=== PATIENT | female | born 1970 | race Caucasian/White ===

== ENCOUNTER 2016-08-31 09:27 | Emergency (ER) | payer MEDICAID ==
[~2016-08-31] VITALS: Ht 170.2 cm; Wt 54.1 kg
[2016-08-31] MEDS ORDERED: SUPPLIMENTS PO (09:42)
[2016-08-31 10:32] LABS: HEMATOCRIT 22.5 % (36-46); HEMOGLOBIN 7.8 g/dL (12.0-16.0); MEAN CORPUSCULAR HEMOGLOBIN 29.7 pg (26.0-34.0); MEAN CORPUSCULAR HGB CONC 34.8 G/dL (31.0-37.0); MEAN CORPUSCULAR VOLUME 85 fL (80-100); PLATELET COUNT (AUTO) 302 K/uL (150-450); RED BLOOD CELL COUNT(AUTO) 2.63 MIL/uL (4.00-5.20); RED CELL DISTRIBUTION WIDTH 16.1 % (11.5-14.5); WHITE BLOOD COUNT (AUTO) 6.9 K/uL (4.5-11.0)
[2016-08-31 10:36] LABS: ANION GAP 10 mmol/L (8-16); CALCIUM, TOTAL 10.7 mg/dL (8.8-10.5); CARBON DIOXIDE 24 mmol/L (22-29); CHLORIDE 103 mmol/L (98-107); CREATININE 0.51 mg/dL (0.60-1.30); GLOMERULAR FILTR. RATE CALC > 60 mL/min (>60); POTASSIUM 3.6 mmol/L (3.5-5.1); SODIUM SERUM 137 mmol/L (136-145); UREA NITROGEN, BLOOD 8 mg/dL (7-18)
[2016-08-31 10:37] LABS: INR 1.2 (0.9-1.1); PROTHROMBIN TIME 12.2 SEC (9.4-11.6)
[2016-08-31 10:42] LABS: ALANINE AMINOTRANSFERASE 179 U/L (12-78); ALBUMIN 2.6 g/dL (3.4-5.0); ASPARTATE AMINOTRANSFERASE 626 U/L (15-37); BILIRUBIN,TOTAL 5.1 mg/dL (0.1-1.0); TOTAL PROTEIN, SERUM 6.8 g/dL (6.4-8.2)
[2016-08-31 10:51] LABS: BAND NEUTROPHILS % (MANUAL) 5 % (1-5); LYMPHOCYTES % (MANUAL) 14 % (22-44); TOTAL CELLS COUNTED 100
[2016-08-31] MEDS ORDERED: LIDOCAINE HCL/PF 1% 30 ML VIAL ONE (10:58)
[2016-08-31] MEDS ORDERED: SODIUM CHLORIDE 0.9% 100 ML ONE (14:14)
[2016-08-31] MEDS ORDERED: IOVERSOL 350 MG/ML 100 ML VIAL ONE (14:14)
[2016-08-31] MEDS ORDERED: MORPHINE SULFATE 4 MG/ML SYRINGE IVP ONE ×3 (15:00→16:30)
[2016-08-31] MEDS ORDERED: ONDANSETRON HCL 4 MG/2 ML VIAL IVP ONE (15:00)
[2016-08-31] MEDS ORDERED: FUROSEMIDE 40 MG/4 ML VIAL IVP ONE (16:15)
[2016-08-31] MEDS ORDERED: POTASSIUM CHLORIDE 10% 40 MEQ/30 ML LIQUID UDCUP PO ONE (16:15)
[2016-08-31 16:31] VITALS: BP 117/68
== END 2016-08-31 16:34 | disposition home or self-care (01) ==
LOC: EMS 09:32
DX: C78.7 Secondary malignant neoplasm of liver and intrahepatic bile duct (principal); C50.919 Malignant neoplasm of unspecified site of unspecified female breast; Z88.6 Allergy status to analgesic agent
CPT/HCPCS: 36245; 36415; 49083; 74177; 75989; 76937; 76942; 80053; 83690; 84703; 85025; 85610; 85730; 96374; 96375; 96376; 99285; C1769; J1940; J2270; J2405; J3490; J7050; Q9967

== ENCOUNTER 2016-09-02 15:36 | Inpatient (IN) | payer MEDICAID ==
[~2016-09-02] VITALS: Ht 170.2 cm; Wt 51.7 kg
[~2016-09-02 15:36] MED LIST: SUPPLIMENTS PO
[2016-09-02] MEDS ORDERED: TRAM50TA4 PO (15:39)
[2016-09-02 19:06] LABS: HEMATOCRIT 23.3 % (36-46); HEMOGLOBIN 7.9 g/dL (12.0-16.0); MEAN CORPUSCULAR HEMOGLOBIN 29.1 pg (26.0-34.0); MEAN CORPUSCULAR HGB CONC 33.8 G/dL (31.0-37.0); MEAN CORPUSCULAR VOLUME 86 fL (80-100); PLATELET COUNT (AUTO) 293 K/uL (150-450); RED CELL DISTRIBUTION WIDTH 15.9 % (11.5-14.5)
[2016-09-02] MEDS ORDERED: DEXTROSE 5%-0.45% SODIUM CHL 1,000 ML IV ONE (19:15)
[2016-09-02 19:18] LABS: INR 1.1 (0.9-1.1)
[2016-09-02 19:24] LABS: IRON, SERUM 73 mcg/dL (50-175); TOTAL IRON BINDING CAPACITY 224 mcg/dL (250-450)
[2016-09-02 19:26] LABS: ALANINE AMINOTRANSFERASE 215 U/L (12-78); ALBUMIN 2.6 g/dL (3.4-5.0); ANION GAP 10 mmol/L (8-16); ASPARTATE AMINOTRANSFERASE 852 U/L (15-37); BILIRUBIN,TOTAL 6.3 mg/dL (0.1-1.0); CARBON DIOXIDE 26 mmol/L (22-29); CHLORIDE 102 mmol/L (98-107); CREATININE 0.66 mg/dL (0.60-1.30); GLOMERULAR FILTR. RATE CALC > 60 mL/min (>60); POTASSIUM 4.2 mmol/L (3.5-5.1); SODIUM SERUM 138 mmol/L (136-145); UREA NITROGEN, BLOOD 10 mg/dL (7-18)
[2016-09-02 19:44] LABS: CALCIUM, TOTAL 11.7 mg/dL (8.8-10.5)
[2016-09-02] MEDS ORDERED: ONDANSETRON HCL 4 MG/2 ML VIAL IVP PRN ×2 (19:45→20:45)
[2016-09-02] MEDS ORDERED: 0.9% SODIUM CHLORIDE 10 ML SYRINGE IVP PRN ×2 (19:45→20:45)
[2016-09-02] MEDS ORDERED: PHYTONADIONE 10 MG in SODIUM CHLORIDE 0.9% 50 ML IV ONE (19:45)
[2016-09-02 19:46] LABS: EOSINOPHILS % (MANUAL) 1 % (1-6); LYMPHOCYTES % (MANUAL) 13 % (22-44); RBC MORPHOLOGY COMMENT ABNORMAL RBC MORPH; TOTAL CELLS COUNTED 100
[2016-09-02 19:50] LABS: AMMONIA 41 umol/L (11-32)
[2016-09-02 19:57] LABS: TROPONIN I < 0.02 ng/mL (0.00-0.05)
[2016-09-02] MEDS ORDERED: FUROSEMIDE 40 MG/4 ML VIAL IVP ONE (20:30)
[2016-09-02] MEDS ORDERED: ACETAMINOPHEN 325 MG TABLET PO PRN (20:45)
[2016-09-02 22:24] VITALS: BP 119/69
[2016-09-02] MEDS ORDERED: SODIUM CHLORIDE 0.9% 250 ML IV ONE (22:50)
[2016-09-02] MEDS ORDERED: TraMADol HCL 50 MG TABLET PO PRN (23:00)
[2016-09-02] MEDS: MORPHINE SULFATE 4 MG/ML SYRINGE IVP PRN (23:12)
[2016-09-02 23:36] VITALS: BP 112/64
[2016-09-02 23:37] VITALS: BP 112/64
[2016-09-02 23:55] VITALS: BP 110/59
[2016-09-03] VITALS (13 sets, daily range): BP systolic 102–132; BP diastolic 51–66
[2016-09-03] MEDS: TraMADol HCL 50 MG TABLET PO PRN ×2 (02:08→23:47)
[2016-09-03] MEDS ORDERED: OxyCODONE HCL/ACETAMINOPHEN 5-325 MG TABLET PO PRN ×2 (03:00)
[2016-09-03] MEDS ORDERED: TraMADol HCL 50 MG TABLET PO PRN (03:00)
[2016-09-03] MEDS: DOCUSATE SODIUM 100 MG CAPSULE PO SCH ×3 (03:00→21:00)
[2016-09-03] MEDS ORDERED: ONDANSETRON HCL 4 MG/2 ML VIAL IVP PRN (03:00)
[2016-09-03] MEDS ORDERED: 0.9% SODIUM CHLORIDE 10 ML SYRINGE IVP PRN (03:00)
[2016-09-03 07:55] LABS: HEMATOCRIT 22.9 % (36-46); HEMOGLOBIN 7.8 g/dL (12.0-16.0); MEAN CORPUSCULAR HEMOGLOBIN 29.1 pg (26.0-34.0); MEAN CORPUSCULAR HGB CONC 33.9 G/dL (31.0-37.0); MEAN CORPUSCULAR VOLUME 86 fL (80-100); PLATELET COUNT (AUTO) 255 K/uL (150-450); RED BLOOD CELL COUNT(AUTO) 2.67 MIL/uL (4.00-5.20); RED CELL DISTRIBUTION WIDTH 15.8 % (11.5-14.5)
[2016-09-03] MEDS: PANTOPRAZOLE SODIUM 40 MG/VIAL IVP SCH (08:55)
[2016-09-03] MEDS ORDERED: CIPROFLOXACIN 400 MG/D5% WATER 200 ML IV ONE (09:00)
[2016-09-03 10:56] LABS: BAND NEUTROPHILS % (MANUAL) 8 % (1-5); LYMPHOCYTES % (MANUAL) 12 % (22-44); TOTAL CELLS COUNTED 100
[2016-09-03] MEDS ORDERED: HYDROmorphone 2 MG/ML SYRINGE IVP SCH (13:00)
[2016-09-03] MEDS ORDERED: MIDAZOLAM HCL 2 MG/2 ML VIAL ONE (13:13)
[2016-09-03] MEDS ORDERED: LIDOCAINE HCL/PF 1% 30 ML VIAL ONE (13:13)
[2016-09-03] MEDS ORDERED: FentaNYL CITRATE-PF 100 MCG/2 ML VIAL ONE (13:28)
[2016-09-03] MEDS ORDERED: IODIXANOL 320 MG/ML 100 ML VIAL ONE (13:36)
[2016-09-03] MEDS ORDERED: SODIUM CHLORIDE 0.9% 1,000 ML IV ONE (14:00)
[2016-09-03] MEDS ORDERED: HYDROmorphone 2 MG/ML SYRINGE IVP ONE (14:05)
[2016-09-03] MEDS ORDERED: MIDAZOLAM HCL 2 MG/2 ML VIAL IVP ONE (14:30)
[2016-09-03] MEDS ORDERED: FentaNYL CITRATE-PF 100 MCG/2 ML VIAL IVP ONE (14:30)
[2016-09-03] MEDS: MORPHINE SULFATE 4 MG/ML SYRINGE IVP PRN ×2 (15:40→21:05)
[2016-09-04 04:22] VITALS: BP 115/69
[2016-09-04] MEDS: MORPHINE SULFATE 4 MG/ML SYRINGE IVP PRN (06:03)
[2016-09-04 07:22] VITALS: BP 104/61
[2016-09-04 07:27] LABS: HEMATOCRIT 23.7 % (36-46); HEMOGLOBIN 8.1 g/dL (12.0-16.0); MEAN CORPUSCULAR HEMOGLOBIN 29.4 pg (26.0-34.0); MEAN CORPUSCULAR HGB CONC 34.2 G/dL (31.0-37.0); MEAN CORPUSCULAR VOLUME 86 fL (80-100); PLATELET COUNT (AUTO) 280 K/uL (150-450); RED BLOOD CELL COUNT(AUTO) 2.76 MIL/uL (4.00-5.20); WHITE BLOOD COUNT (AUTO) 5.6 K/uL (4.5-11.0)
[2016-09-04 07:42] LABS: ANION GAP 7 mmol/L (8-16); CARBON DIOXIDE 27 mmol/L (22-29); CHLORIDE 102 mmol/L (98-107); CREATININE 0.67 mg/dL (0.60-1.30); GLOMERULAR FILTR. RATE CALC > 60 mL/min (>60); POTASSIUM 3.7 mmol/L (3.5-5.1); SODIUM SERUM 136 mmol/L (136-145); UREA NITROGEN, BLOOD 9 mg/dL (7-18)
[2016-09-04 08:12] LABS: CALCIUM, TOTAL 12.5 mg/dL (8.8-10.5)
[2016-09-04 08:41] LABS: BAND NEUTROPHILS % (MANUAL) 5 % (1-5); LYMPHOCYTES % (MANUAL) 8 % (22-44); REACTIVE LYMPHOCYTES 6 % (0-0); TOTAL CELLS COUNTED 100
[2016-09-04] MEDS: DOCUSATE SODIUM 100 MG CAPSULE PO SCH ×2 (09:00→21:00)
[2016-09-04] MEDS: PANTOPRAZOLE SODIUM 40 MG/VIAL IVP SCH (09:44)
[2016-09-04] MEDS ORDERED: SODIUM CHLORIDE 0.9% 1,000 ML IV SCH (09:45)
[2016-09-04] MEDS ORDERED: PAMIDRONATE DISODIUM 90 MG in SODIUM CHLORIDE 0.9% 500 ML IV ONE (10:00)
[2016-09-04] MEDS ORDERED: PAMIDRONATE DISODIUM 30 MG in SODIUM CHLORIDE 0.9% 500 ML IV ONE (12:00)
[2016-09-04 12:18] VITALS: BP 112/64
[2016-09-04] MEDS: HYDROmorphone HCL 2 MG TABLET PO PRN ×3 (12:39→22:46)
[2016-09-04 15:18] VITALS: BP 105/63
[2016-09-04 19:17] VITALS: BP 114/58
[2016-09-04] MEDS: DEXTROSE 5%-0.45% SODIUM CHL 1,000 ML IV SCH (22:42)
[2016-09-04 23:20] VITALS: BP 125/67
[2016-09-05] MEDS ORDERED: HYDROmorphone 2 MG/ML SYRINGE IVP ONE (01:15)
[2016-09-05 04:47] VITALS: BP 120/63
[2016-09-05] MEDS: HYDROmorphone HCL 2 MG TABLET PO PRN ×3 (05:18→21:17)
[2016-09-05] MEDS: DEXTROSE 5%-0.45% SODIUM CHL 1,000 ML IV SCH ×3 (06:36→17:14)
[2016-09-05 06:55] LABS: ANION GAP 7 mmol/L (8-16); CALCIUM, TOTAL 11.5 mg/dL (8.8-10.5); CARBON DIOXIDE 25 mmol/L (22-29); CHLORIDE 103 mmol/L (98-107); CREATININE 0.68 mg/dL (0.60-1.30); GLOMERULAR FILTR. RATE CALC > 60 mL/min (>60); POTASSIUM 3.7 mmol/L (3.5-5.1); SODIUM SERUM 135 mmol/L (136-145); UREA NITROGEN, BLOOD 11 mg/dL (7-18)
[2016-09-05 07:34] VITALS: BP 121/62
[2016-09-05] MEDS: DOCUSATE SODIUM 100 MG CAPSULE PO SCH ×2 (08:11→21:00)
[2016-09-05] MEDS: PANTOPRAZOLE SODIUM 40 MG/VIAL IVP SCH (08:11)
[2016-09-05] MEDS ORDERED: HYDROmorphone HCL 2 MG TABLET PO PRN (10:30)
[2016-09-05 11:47] VITALS: BP 131/72
[2016-09-05 15:22] VITALS: BP 123/75
[2016-09-05] MEDS ORDERED: PAMIDRONATE DISODIUM 90 MG in SODIUM CHLORIDE 0.9% 500 ML IV ONE (19:00)
[2016-09-05 19:23] VITALS: BP 123/72
[2016-09-05 19:49] LABS: INR 1.2 (0.9-1.1); PROTHROMBIN TIME 12.3 SEC (9.4-11.6)
[2016-09-05] MEDS: SODIUM CHLORIDE 0.9% 1,000 ML IV SCH (21:18)
[2016-09-05 23:16] VITALS: BP 121/64
[2016-09-06] VITALS (15 sets, daily range): BP systolic 112–139; BP diastolic 54–84
[2016-09-06] MEDS: CALCITONIN,SALMON,SYNTHETIC 200 UNITS/ML 2 ML VIAL IM SCH ×2 (00:22→09:00)
[2016-09-06] MEDS: HYDROmorphone HCL 2 MG TABLET PO PRN ×3 (01:18→17:51)
[2016-09-06] MEDS: SODIUM CHLORIDE 0.9% 1,000 ML IV SCH (05:48)
[2016-09-06 06:56] LABS: ANION GAP 10 mmol/L (8-16); CALCIUM, TOTAL 10.4 mg/dL (8.8-10.5); CARBON DIOXIDE 24 mmol/L (22-29); CHLORIDE 104 mmol/L (98-107); CREATININE 0.51 mg/dL (0.60-1.30); GLOMERULAR FILTR. RATE CALC > 60 mL/min (>60); POTASSIUM 3.7 mmol/L (3.5-5.1); SODIUM SERUM 138 mmol/L (136-145)
[2016-09-06 06:57] LABS: MEAN CORPUSCULAR HEMOGLOBIN 28.9 pg (26.0-34.0); MEAN CORPUSCULAR HGB CONC 33.9 G/dL (31.0-37.0); MEAN CORPUSCULAR VOLUME 85 fL (80-100); PLATELET COUNT (AUTO) 200 K/uL (150-450); RED BLOOD CELL COUNT(AUTO) 2.39 MIL/uL (4.00-5.20); WHITE BLOOD COUNT (AUTO) 4.9 K/uL (4.5-11.0)
[2016-09-06 07:04] LABS: UREA NITROGEN, BLOOD 9 mg/dL (7-18)
[2016-09-06 07:06] LABS: HEMATOCRIT 20.4 % (36-46); HEMOGLOBIN 6.9 g/dL (12.0-16.0)
[2016-09-06] MEDS ORDERED: HEPARIN SODIUM 1000 UNITS/NS 500 ML ONE (07:47)
[2016-09-06] MEDS ORDERED: IODIXANOL 320 MG/ML 150 ML VIAL ONE (07:47)
[2016-09-06 07:53] LABS: BAND NEUTROPHILS % (MANUAL) 6 % (1-5); LYMPHOCYTES % (MANUAL) 12 % (22-44); REACTIVE LYMPHOCYTES 2 % (0-0); TOTAL CELLS COUNTED 100
[2016-09-06] MEDS ORDERED: FentaNYL CITRATE-PF 100 MCG/2 ML VIAL ONE (08:19)
[2016-09-06] MEDS ORDERED: MIDAZOLAM HCL 2 MG/2 ML VIAL ONE (08:20)
[2016-09-06] MEDS ORDERED: GELATIN SPONGE,ABSORBABLE 12-7 MM TP ONE (08:20)
[2016-09-06] MEDS ORDERED: SODIUM BICARBONATE 50 MEQ/50 ML VIAL ONE (08:20)
[2016-09-06] MEDS ORDERED: LIDOCAINE HCL/PF 1% 30 ML VIAL ONE (08:20)
[2016-09-06] MEDS ORDERED: FentaNYL CITRATE-PF 100 MCG/2 ML VIAL IVP ONE (09:00)
[2016-09-06] MEDS ORDERED: SODIUM CHLORIDE 0.9% 500 ML IV ONE (09:00)
[2016-09-06] MEDS: DOCUSATE SODIUM 100 MG CAPSULE PO SCH (09:00)
[2016-09-06] MEDS: PANTOPRAZOLE SODIUM 40 MG/VIAL IVP SCH (09:00)
[2016-09-06] MEDS ORDERED: HYDROmorphone 2 MG/ML SYRINGE IVP ONE ×2 (09:00→09:15)
[2016-09-06] MEDS ORDERED: MIDAZOLAM HCL 2 MG/2 ML VIAL IVP ONE (09:00)
[2016-09-06] MEDS ORDERED: LIDOCAINE 1% 30 ML/SOD BICARB 8.4% 4 ML SQ ONE (09:05)
[2016-09-06] MEDS ORDERED: HYDROmorphone HCL 2 MG TABLET PO ONE (11:00)
[2016-09-06] MEDS ORDERED: SODIUM CHLORIDE 0.9% 250 ML IV ONE (12:53)
[2016-09-06] MEDS ORDERED: HYDR2 PO ×4 (20:35→20:46)
[2016-09-06] MEDS ORDERED: PROM25 PO (20:36)
== END 2016-09-06 21:45 | disposition home or self-care (01) | DRG 260 ==
LOC: EMS 15:38 → 6N 19:30
PROVIDERS: ADMIT Internal Medicine; ATTEND Internal Medicine
PROC: 30233N1 Transfusion of Nonautologous Red Blood Cells into Peripheral Vein, Percutaneous Approach (ICD-10-PCS; 2016-09-02)
PROC: 0F513ZZ Destruction of Right Lobe Liver, Percutaneous Approach (ICD-10-PCS; principal; 2016-09-03)
PROC: BF101ZZ Fluoroscopy of Bile Ducts using Low Osmolar Contrast (ICD-10-PCS; 2016-09-03)
PROC: B4141ZZ Fluoroscopy of Superior Mesenteric Artery using Low Osmolar Contrast (ICD-10-PCS; 2016-09-06)
PROC: 04L33DZ Occlusion of Hepatic Artery with Intraluminal Device, Percutaneous Approach (ICD-10-PCS; 2016-09-06)
PROC: 0W9G30Z Drainage of Peritoneal Cavity with Drainage Device, Percutaneous Approach (ICD-10-PCS; 2016-09-06)
DX: C78.7 Secondary malignant neoplasm of liver and intrahepatic bile duct (principal); R18.0 Malignant ascites; E43 Unspecified severe protein-calorie malnutrition; R64 Cachexia; K83.1 Obstruction of bile duct; C50.919 Malignant neoplasm of unspecified site of unspecified female breast; E83.52 Hypercalcemia; K92.2 Gastrointestinal hemorrhage, unspecified; D63.8 Anemia in other chronic diseases classified elsewhere; D50.0 Iron deficiency anemia secondary to blood loss (chronic); D63.0 Anemia in neoplastic disease; Z90.10 Acquired absence of unspecified breast and nipple; Z88.8 Allergy status to other drugs, medicaments and biological substances; Z79.899 Other long term (current) drug therapy
CPT/HCPCS: 75726; 75982; 76937; 76942; 83540; 83550; 83605; 86850; 86900; 86901; 86920; 87040; 87081; 93005; 96365; 96368; 96375; 99285; C9113; J0630; J0744; J1170; J1644; J1940; J2250; J2270; J2405; J2430; J3010; J3430; J3490; J7030; J7040; J7050; P9016; Q9967